=== PATIENT | male | born 1985 | race African-American/Black ===

== ENCOUNTER 2021-08-07 11:11 | Emergency (ER) | payer SELFPAY ==
[~2021-08-07] VITALS: Ht 188 cm; Wt 128.1 kg
[2021-08-07] MEDS ORDERED: LACTATED RINGERS 1,000 ML IV STA (11:23)
[2021-08-07] MEDS ORDERED: FAMOTIDINE 20MG/2ML IV (PEPCID) IV STA (11:23)
--- NOTE | 2021-08-07 11:23 | ED Back Pain ---
General Stated Complaint: ABD PAIN History of Present Illness Date Seen by Provider: Aug 07, 2021 Time Seen by Provider: 11:20 Initial Comments 35-year-old male brought in due to some diarrhea and stomach cramping that started yesterday. Discomfort is epigastric goes down to his lower abdomen. He reports diarrhea. Denies any nausea or vomiting. No fever or chills. He reports he had some similar about a month ago. Patient was seen at urgent care and sent over here for further evaluation Allergies and Home Medications Allergies Coded Allergies: No Known Drug Allergies (Unverified , 08/07/21) Patient Home Medication List Home Medication List Reviewed: Yes Review of Systems Constitutional: No chills, No fever EENTM: no symptoms reported Respiratory: no symptoms reported Cardiovascular: no symptoms reported Gastrointestinal: see HPI, abdominal pain, diarrhea; No nausea, No vomiting Genitourinary: no symptoms reported Musculoskeletal: no symptoms reported Skin: no symptoms reported Psychiatric/Neurological: No Symptoms Reported Physical Exam Vital Signs Vital Signs - First Documented 08/07/21 11:15 Temp 36.5 Pulse 89 Resp 14 B/P (MAP) 163/104 (123) O2 Delivery Room Air Capillary Refill : Height, Weight, BMI Height: '" Weight: lbs. oz. kg; BMI Method: General Appearance: No Apparent Distress, WD/WN Cardiovascular: Regular Rate, Rhythm Respiratory: Lungs Clear, Normal Breath Sounds Gastrointestinal: Soft, Tenderness (Mild epigastric and lower abdomen discomfort, negative Lindsay sign and negative right upper quadrant pain) Back: Normal Inspection Extremity: Normal Capillary Refill, Normal Range of Motion Neurologic/Psychiatric: Alert, Oriented x3, No Motor/Sensory Deficits, Normal Mood/Affect, micro paleontologist II-XII Norm as Tested Skin: Normal Color, Warm/Dry Progress/Results/Core Measures Results/Orders Lab Results Laboratory Tests Test 08/07/21 11:35 Range/Units White Blood Count 5.9 4.3-11.0 10^3/uL Red Blood Count 5.57 H 4.30-5.52 10^6/uL Hemoglobin 14.8 13.3-17.7 g/dL Hematocrit 45 40-54 % Mean Corpuscular Volume 80 80-99 fL Mean Corpuscular Hemoglobin 27 25-34 pg Mean Corpuscular Hemoglobin Concent 33 32-36 g/dL Red Cell Distribution Width 14.4 10.0-14.5 % Platelet Count 202 130-400 10^3/uL Mean Platelet Volume 9.8 9.0-12.2 fL Immature Granulocyte % (Auto) 0 % Neutrophils (%) (Auto) 66 42-75 % Lymphocytes (%) (Auto) 23 12-44 % Monocytes (%) (Auto) 10 0-12 % Eosinophils (%) (Auto) 1 0-10 % Basophils (%) (Auto) 0 0-10 % Neutrophils # (Auto) 3.9 1.8-7.8 10^3/uL Lymphocytes # (Auto) 1.4 1.0-4.0 10^3/uL Monocytes # (Auto) 0.6 0.0-1.0 10^3/uL Eosinophils # (Auto) 0.1 0.0-0.3 10^3/uL Basophils # (Auto) 0.0 0.0-0.1 10^3/uL Immature Granulocyte # (Auto) 0.0 0.0-0.1 10^3/uL Sodium Level 136 135-145 MMOL/L Potassium Level 3.6 3.6-5.0 MMOL/L Chloride Level 100 98-107 MMOL/L Carbon Dioxide Level 23 21-32 MMOL/L Anion Gap 13 5-14 MMOL/L Blood Urea Nitrogen 11 7-18 MG/DL Creatinine 1.03 0.60-1.30 MG/DL Estimat Glomerular Filtration Rate 98 BUN/Creatinine Ratio 11 Glucose Level 99 70-105 MG/DL Calcium Level 8.9 8.5-10.1 MG/DL Corrected Calcium 8.7 8.5-10.1 MG/DL Total Bilirubin 1.5 H 0.1-1.0 MG/DL Aspartate Amino Transf (AST/SGOT) 18 5-34 U/L Alanine Aminotransferase (ALT/SGPT) 18 0-55 U/L Alkaline Phosphatase 87 40-136 U/L C-Reactive Protein 5.32 H <0.50 MG/DL Total Protein 7.2 6.4-8.2 GM/DL Albumin 4.3 3.2-4.5 GM/DL Lipase 14 8-78 U/L My Orders Orders - ANTHONY,KAYLIE L DO Cbc With Automated Diff (08/07/21 11:23) Comprehensive Metabolic Panel (08/07/21 11:23) Lipase (08/07/21 11:23) Ua Culture If Indicated (08/07/21 11:23) Crp Fs (08/07/21 11:23) Lactated Ringers (Lr 1000 Ml Iv Solution (08/07/21 11:23) Famotidine Injection (Pepcid Injection) (08/07/21 11:23) Vital Signs/I&O 08/07/21 11:15 Temp 36.5 Pulse 89 Resp 14 B/P (MAP) 163/104 (123) O2 Delivery Room Air Progress Progress Note : Progress Note Patient's labs are consistent with likely a viral gastroenteritis. Patient reports he is feeling a lot better after the IV fluids and Pepcid. Discussed findings with patient. He was offered further evaluation including CT scan which he deferred at this time. He will return if his symptoms worsen. Recommend he try Pepcid twice daily since that did provide him quite a bit of relief. Patient stable and discharged home. Patient very unlikely to have an acute gallbladder with negative labs and negative Lindsay sign. Departure Impression Primary Impression: Viral gastroenteritis Disposition: 01 HOME, SELF-CARE Condition: Stable Departure-Patient Inst. Referrals: NO,LOCAL PHYSICIAN (PCP/Family) Primary Care Physician Patient Instructions: Viral Gastroenteritis Add. Discharge Instructions: Pepcid twice daily as directed on package Follow-up with your primary care provider if symptoms become recurrent KAYLIE ANTHONY DO Aug 07, 2021 11:23
[2021-08-07 11:54] LABS: BASOPHILS % (AUTO) 0 % (0-10); EOSINOPHILS # (AUTO) 0.1 10^3/uL (0.0-0.3); EOSINOPHILS % (AUTO) 1 % (0-10); HEMATOCRIT 45 % (40-54); HEMOGLOBIN 14.8 g/dL (13.3-17.7); LYMPHOCYTES # (AUTO) 1.4 10^3/uL (1.0-4.0); LYMPHOCYTES % (AUTO) 23 % (12-44); MEAN CORPUSCULAR HEMOGLOBIN 27 pg (25-34); MEAN CORPUSCULAR HGB CONC 33 g/dL (32-36); MEAN CORPUSCULAR VOLUME 80 fL (80-99); MEAN PLATELET VOLUME 9.8 fL (9.0-12.2); MONOCYTES # (AUTO) 0.6 10^3/uL (0.0-1.0); MONOCYTES % (AUTO) 10 % (0-12); NEUTROPHILS # (AUTO) 3.9 10^3/uL (1.8-7.8); NEUTROPHILS % (AUTO) 66 % (42-75); PLATELET COUNT 202 10^3/uL (130-400); WHITE BLOOD COUNT 5.9 10^3/uL (4.3-11.0)
[2021-08-07 12:31] LABS: POTASSIUM 3.6 MMOL/L (3.6-5.0)
[2021-08-07 12:32] LABS: ALBUMIN 4.3 GM/DL (3.2-4.5); BILIRUBIN,TOTAL 1.5 MG/DL (0.1-1.0); CALCIUM 8.9 MG/DL (8.5-10.1); CREATININE SERUM 1.03 MG/DL (0.60-1.30); TOTAL PROTEIN 7.2 GM/DL (6.4-8.2)
[2021-08-07 13:04] VITALS: BP 134/73
== END 2021-08-07 13:04 | disposition home or self-care (01) ==
LOC: ER FS 11:13
DX: A08.4 Viral intestinal infection, unspecified (principal)
CPT/HCPCS: 36415; 80053; 83690; 85025; 86141